=== PATIENT | male | born 1970 | race Hispanic/Latino ===

== ENCOUNTER 2020-05-23 09:30 | Inpatient (IN) | payer SELFPAY ==
--- NOTE | 2020-05-23 11:35 | RAD ---
Chest one view HISTORY: Swelling. Dyspnea. FINDINGS: Cardiac silhouette is magnified by projection. Pulmonary vasculature are unremarkable. Mediastinum is midline. Ill-defined hazy peripheral opacity projects over the lateral aspect of the r ight upper lobe. No evidence of pneumothorax. IMPRESSION : Right upper lobe opacity. Possible infiltrate. Correlate for right upper lobe pneumonitis. Please consider upright PA and views of the chest when patient can undergo that exam.
[2020-05-23 12:11] LABS: INR-International Normal Ratio 1.8; PTT 37.2 sec (22.9-36.1); Prothrombin Time 21.1 sec (12.0-14.7)
[2020-05-23 12:19] LABS: #Eosinphils 0.1 thou/uL (0.0-0.7); #Lymphocytes 0.8 thou/uL (1.20-3.40); #Monocytes 0.8 thou/uL (0.11-0.59); %Basophils 0.4 % (0.0-1.0); %Eosinophils 1.1 % (0.0-10.0); %Lymphocytes 11.6 % (21.0-51.0); %Monocytes 11.9 % (0.0-10.0); %Neutrophils 75.1 % (42.0-75.0); Hemoglobin 12.3 g/dL (14.0-18.0); Mean Corpuscular HGB CONC 33.3 g/dL (32.0-36.0); Mean Corpuscular Hemoglobin 35.3 pg (27.0-31.0); Mean Platelet Volume 10.3 fL (7.4-10.4); Platelet Count 58 thou/uL (130-400); RBC Distribution Width 16.2 % (11.5-14.5); Red Blood Cell (RBC) Count 3.48 mill/uL (4.70-6.10); White Blood Cell (WBC) Count 6.7 thou/uL (4.8-10.8)
[2020-05-23 12:24] LABS: ALT (SGPT) 46 U/L (8-55); AST (SGOT) 120 U/L (5-34); Albumin 2.5 g/dL (3.5-5.0); Alkaline Phosphatase 241 U/L (40-110); Anion Gap 12 mmol/L (10-20); BUN (Urea Nitrogen) 6 mg/dL (8.9-20.6); Bilirubin, Total 12.8 mg/dL (0.2-1.2); Calc. Creatinine Clearance 0 mL/min (70-130); Calcium 7.7 mg/dL (7.8-10.44); Carbon Dioxide 21 mmol/L (22-29); Chloride 101 mmol/L (98-107); Globulin 4.9 g/dL (2.4-3.5); Glucose 123 mg/dL (70-105); Potassium 3.5 mmol/L (3.5-5.1); Protein, Total 7.4 g/dL (6.0-8.3); Sodium 130 mmol/L (136-145)
[2020-05-23 12:45] LABS: Hypersemented Neutrophil SLIGHT; MDiff Complete? YES; Platelet Morphology Comment Appears Decreased; Polychromasia SLIGHT = 2-3 cells (100X) (0-2/hpf)
[2020-05-23] MEDS ORDERED: cefTRIAXone\\ROCEPHIN 2 GM VIAL ONE (13:57)
[2020-05-23] MEDS ORDERED: Sodium Chloride 0.9% 100 ML ONE (13:57)
[2020-05-23] MEDS ORDERED: Azithromycin 500 MG VIAL ONE (14:34)
[2020-05-23 16:39] VITALS: BMI 38.7
[2020-05-23] MEDS ORDERED: Electrolyte Replacement Protocol FS PRN (17:45)
[2020-05-23] MEDS ORDERED: Electrolyte Replacement Protocol 1 EACH FS SCH (17:45)
--- NOTE | 2020-05-23 19:12 | HP ---
REASON FOR ADMISSION: Increased bilateral lower extremity swelling. 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 A month ago, he started experiencing swelling of his lower extremities initially around his ankles, but as the days progressed, the swelling increased and was involving both of his legs, his scrotum, and his abdomen that he was having difficulty taking a deep breath. He does endorse a hacking cough productive of some phlegm, but no fevers, no chills. He presented to his primary care physician today, Dr. Shrestha, who noted that the patient had gained approximately 40 pounds over the past couple of weeks. She advised him to present to the emergency room for further management. The patient is currently on Med/Surg. He appears to be comfortable, in no acute distress. He is very pleasant. PAST MEDICAL HISTORY: 1. Anxiety. 2. Liver cirrhosis. SOCIAL HISTORY: He quit drinking alcohol 10 years ago. He quit smoking 20 years ago. FAMILY HISTORY: Father has diabetes as well as his mother. ALLERGIES: NO NOTE OF ANY DRUG ALLERGY. REVIEW OF SYSTEMS: All systems reviewed except for the above mentioned swelling of bilateral lower extremity, found to be negative. PHYSICAL EXAMINATION: GENERAL: He is awake, alert, oriented, does not appear in distress. VITAL SIGNS: His blood pressure is 125/60, heart rate of 90, temperature is 98.1, saturating 98% on room air. HEENT: Head is nontraumatic, normocephalic. Icteric sclerae. Injected conjunctivae. Oral mucosa normal. Nasal mucosa normal. NECK: Supple. No adenopathy. No murmur. Thyroid is not palpable. Trachea is midline. HEART: S1, S2, regular. Faint systolic murmur heard. LUNGS: Clear to auscultation bilaterally. No wheezes, no rhonchi, no crackles. ABDOMEN: Bowel sounds are positive. Abdomen is distended with shifting dullness. EXTREMITIES: He does have 3+ pitting edema in bilateral lower extremities extending to his inguinal area. NEURO: Cranial nerves 2 through 12 within normal limits. Normal motor function. Normal sensory function, reflexes. LABORATORY DATA: Blood work shows a WBC of 6.7, hemoglobin of 12.3, platelets of 58. INR 1.8. Sodium 130, potassium 3.5, bicarb of 21, BUN of 6, creatinine 0.69, glucose 123, calcium 7.7, AST 120, ALT 46, alkaline phosphatase of 241. BNP 143.7, albumin 2.5. A chest x-ray shows right upper lobe opacity, possible infiltrate, correlate for right upper lobe pneumonitis. ASSESSMENT AND PLAN: This is a 49-year-old male patient, who is known to have liver cirrhosis and recently developing anasarca/ascites, presenting for worsening of his anasarca. Chest x-ray did show possible upper lobe pneumonitis. Recommendation is to do a PA and lateral x-ray. The patient will be admitted to Med-Surg and I will start him on IV Lasix. He did receive his initial dose in the ER, we will consult Gastroenterology for further recommendation. Also, we will consult Interventional Radiology for an ultrasound-guided paracentesis, he is usually on lactulose, so we will have him on lactulose once a day. We will check his ammonia level as well. For the possible pneumonitis, he did receive Rocephin and azithromycin in the ER. I will maintain him on azithromycin. I have a weak suspicion for pneumonia. On the other hand, would like to do a dedicated PA and lateral x-ray tomorrow for further investigation. For DVT prophylaxis, he will be on SCDs. Job ID: [id number]
[2020-05-23] MEDS: Furosemide 40 MG/4 ML VIAL SLOW IVP SCH (20:40)
[2020-05-23] MEDS ORDERED: Furosemide 20 MG/2 ML VIAL SLOW IVP SCH (21:00)
[2020-05-23] MEDS ORDERED: Ibuprofen 600 MG TAB PO SCH (21:45)
[2020-05-23 22:02] LABS: SARS-CoV-2 MS2 Positive; SARS-CoV-2 N Gene Negative; SARS-CoV-2 S Gene Negative; SARS-CoV-2 by NAA Not Detected (NotDetected); SARS-CoV-2 orf1ab Negative
[2020-05-24 04:45] LABS: #Eosinphils 0.1 thou/uL (0.0-0.7); #Lymphocytes 0.9 thou/uL (1.20-3.40); #Monocytes 0.6 thou/uL (0.11-0.59); #Neutrophils 2.9 thou/uL (1.40-6.50); %Basophils 0.8 % (0.0-1.0); %Eosinophils 1.5 % (0.0-10.0); %Lymphocytes 19.9 % (21.0-51.0); %Monocytes 14.1 % (0.0-10.0); %Neutrophils 63.7 % (42.0-75.0); Hemoglobin 10.7 g/dL (14.0-18.0); Mean Corpuscular HGB CONC 32.4 g/dL (32.0-36.0); Mean Corpuscular Hemoglobin 34.6 pg (27.0-31.0); Mean Platelet Volume 9.9 fL (7.4-10.4); Platelet Count 53 thou/uL (130-400); RBC Distribution Width 16.3 % (11.5-14.5); White Blood Cell (WBC) Count 4.5 thou/uL (4.8-10.8)
[2020-05-24 04:58] LABS: ALT (SGPT) 37 U/L (8-55); AST (SGOT) 91 U/L (5-34); Alkaline Phosphatase 184 U/L (40-110); Anion Gap 10 mmol/L (10-20); BUN (Urea Nitrogen) 8 mg/dL (8.9-20.6); Bilirubin, Total 10.6 mg/dL (0.2-1.2); Calc. Creatinine Clearance 217 mL/min (70-130); Calcium 7.2 mg/dL (7.8-10.44); Carbon Dioxide 24 mmol/L (22-29); Chloride 103 mmol/L (98-107); Glucose 91 mg/dL (70-105); Potassium 3.4 mmol/L (3.5-5.1); Sodium 134 mmol/L (136-145)
[2020-05-24] MEDS ORDERED: Potassium Chloride 20 MEQ TAB PO SCH (06:30)
--- NOTE | 2020-05-24 09:25 | ULT ---
Sonogram abdomen limited HISTORY: Ascites. FINDINGS: Exam was originally scheduled as a therapeutic paracentesis. Sonographic survey shows a SMALL AMOUNT of FREE FLUID. Of insufficient quantity for appropriate and e ffective drainage. Therapeutic paracentesis therefore was not performed.
[2020-05-24] MEDS: Furosemide 40 MG/4 ML VIAL SLOW IVP SCH ×2 (10:02→19:34)
--- NOTE | 2020-05-24 10:30 | RAD ---
TWO VIEWS CHEST: HISTORY: Abnormal chest x-ray. FINDINGS: Again noted is the parenchymal opacity seen within the posterior aspect of the right upper lobe. The re is also parenchymal opacity seen within the medial aspect of the left upper lobe. Findings are wo rrisome for multifocal areas of pneumonia. Followup to complete resolution is recommended to ensure resolution. No definite pleural effusion is appreciated. No other interval change compared to prior study. IMPRESSION: Right upper lobe and left lower lobe parenchymal airspace opacities worrisome for multifocal pneumoni a. Atypical pneumonia is a possibility. Followup to complete resolution is recommended. POS: [facility]
--- NOTE | 2020-05-24 12:34 | CON ---
DATE OF CONSULTATION: 05/24/2020 REQUESTING PHYSICIAN: Lance Zapata MD REASON FOR CONSULTATION: Cirrhosis and anasarca. HISTORY OF PRESENT ILLNESS: Prabhakar Shankar is a very pleasant 49-year-old man, who has not established care with any [facility] project manager so far. He was admitted to the hospital yesterday with worsening progressive lower extremity edema, then scrotal edema and some abdominal distention over the past month or so. He has gained about 40 pounds over this past period of time due to the fluid retention. He reports a prior diagnosis of cirrhosis back around 2013 while he was in intermediate. He recalls having undergone some workup and being told that it was secondary to alcohol. He quit drinking all alcohol at that time and had done very well symptomatically since then. About four months ago, for whatever reason, he started drinking again. He says he has about a six pack of beer every day. Back in March, I note that he saw his primary physician and labs at that time showed total bilirubin elevation to 6.7, ammonia over 500 and he was referred for outpatient hepatology evaluation, which he had not yet followed up for. Regardless, his only real symptoms are the significant lower extremity scrotal and lower abdominal edema. He has some minor cough, but no fever. No shortness of breath. Upon presentation, he is now found to have some further elevation in LFTs with bilirubin up to 10.6, AST 91, and ALT 37. He has some thrombocytopenia with platelets 53, as well as coagulopathy with INR 1.8. His renal function appears good with creatinine only 0.64. He was sent for ultrasound-guided paracentesis, but actually on that ultrasound, there was not enough fluid to perform paracentesis and so it was canceled. He has not had any other dedicated liver imaging and his chest x-ray suggest a multifocal pneumonitis and so he has been started on azithromycin. Notably, he was started on Lasix 20 mg daily as well as lactulose within the past few months, but he has not been on any low-sodium diet. He has not undergone any upper endoscopy that he can recall. REVIEW OF SYSTEMS: Full review of systems including constitutional, head, eyes, ears, nose, throat, GI, , cardiovascular, respiratory, musculoskeletal, and neurologic systems are negative except as noted in the HPI. PAST MEDICAL HISTORY: 1. Cirrhosis, evidently secondary to alcohol, diagnosed around 2013. 2. Anxiety. 3. Chronic alcohol abuse, recently started drinking again in the past 4 months or so. SOCIAL HISTORY: He says he quit drinking alcohol back around 2013, but started drinking again about four months ago. A six pack of beer per day. He quit smoking about 20 years ago. No recent drug use, did have some greater than 30 years ago. FAMILY HISTORY: No known family history of liver disease. There is a family history of diabetes and kidney disease. ALLERGIES: NO KNOWN DRUG ALLERGIES. OUTPATIENT MEDICATIONS: 1. Lactulose 30 g p.o. daily. 2. Lasix 20 mg p.o. daily. 3. Zoloft 100 mg p.o. daily. PHYSICAL EXAMINATION: VITAL SIGNS: Temperature 98.7, pulse 81, blood pressure 115/65, and 97% oxygen saturation on room air. GENERAL: A 49-year-old man, sitting up in chair comfortably, in no distress. He is jaundiced. EYES: He has some scleral icterus. Extraocular movements intact. ENT: Mucous membranes moist. No oral lesions. LYMPH: No submandibular or supraclavicular lymphadenopathy. THYROID: Nontender to palpation. HEART: Regular rate and rhythm. LUNGS: Clear to auscultation bilaterally. No wheezing. No respiratory distress appreciated. ABDOMEN: He is obese. There is some mild to moderate distention, primarily in the lower abdomen. There is a lot of subcutaneous edema in the lower abdomen. No shifting dullness, though. He has active bowel sounds and some mild generalized tenderness to palpation, but no guarding or rebound tenderness. EXTREMITIES: 2 to 3+ bilateral lower extremity edema going all the way up the thighs. NEUROLOGIC: Cranial nerves 2 through 12 intact bilaterally. No asterixis. No focal deficits. LABORATORY STUDIES: WBC 4.5, hemoglobin 10.7, platelets 53, and MCV is 107.0. INR elevated at 1.8. Sodium 134, potassium 3.4, BUN 8, creatinine 0.64, glucose only 91, calcium 7.2, total bilirubin 10.6, alkaline phosphatase 184, AST 91, ALT 37, and ammonia only 49. BNP is 143.7. Troponin negative. Albumin 2.0. COVID PCR is negative. IMAGING STUDIES: Chest x-ray demonstrates right upper lobe and left lower lobe parenchymal opacities concerning for multifocal pneumonia. Limited abdominal ultrasound from this morning showed only a small amount of free fluid, insufficient quantity for paracentesis, so it was not performed. ASSESSMENT AND PLAN: 1. Cirrhosis, likely secondary to alcohol, now with recent decompensation. 2. Anasarca, with significant recent fluid retention and weight gain over the past month, though evidently no significant ascites as yet. 3. Multifocal pneumonia, he has been started on azithromycin. 4. Thrombocytopenia, likely secondary to cirrhosis. 5. Coagulopathy, with INR 1.8, likely secondary to cirrhosis. 6. History of hyperammonemia, with recent ammonia greater than 500, with no history of overt encephalopathy, now with normal ammonia level on lactulose. I had a long discussion with the patient regarding his liver disease. This likely is secondary to alcohol abuse, and is now more recent decompensation with anasarca is likely secondary to his resumption of alcohol use. It is going to be very important that he completely abstain from all alcohol going forward, and he is pretty confident that he will be able to do this. We are going to expand the liver lab workup with viral hepatitis serologies, autoimmune markers, iron studies, ceruloplasmin, and alpha-1 antitrypsin, to rule out any other concomitant liver disease, though I suspect this is all due to alcohol abuse. He needs better liver imaging to rule out not only hepatocellular carcinoma, but also possibly portal vein thrombosis, which might have contributed to his current presentation. We will get MRI as well as AFP level. He is now receiving IV diuresis, which is appropriate. On hospital discharge, he is going to need to be on an increased dose of Lasix and I would also add oral spironolactone at a ratio of 20 to 50 daily. I also discussed the importance of a low-sodium diet with the patient. Upon followup in our GI/hepatology clinic, we can also discuss at some point, schedule him for esophagogastroduodenoscopy to screen for esophageal varices. If the patient has evidence of worsening liver function over the next few weeks and months despite abstinence from alcohol, we could also consider referral to a liver transplant center for their evaluation. Currently, MELD score is 24. Thank you for the consultation. Please call anytime with questions or concerns. Job ID: [id number]
[2020-05-24] MEDS ORDERED: Magnevist 469MG/ML 20 ML VIAL ONE (13:37)
--- NOTE | 2020-05-24 15:26 | PDOC.HOSPP ---
- Subjective Encounter Date: 05/24/20 Encounter Time: 12:00 Subjective: no abd pain or sob is sitting in chair, eating well and amb in room says he started drinking alc from last 4 months (almost 12 beers daily) - Objective Vital Signs & Weight: Vital Signs (12 hours) Temp Pulse Resp BP BP Pulse Ox 05/24/20 08:00 98.7 F 81 18 115/65 97 05/24/20 04:00 98.0 F 85 16 114/60 97 Weight Weight 240 lb I&O: 05/23/20 05/24/20 05/25/20 06:59 06:59 06:59 Intake Total 1510 720 Output Total 1450 Balance 60 720 Result Diagrams: 05/24/20 04:18 05/24/20 04:18 Hospitalist ROS - Medication Medications: Active Medications Generic Name Dose Route Start Last Admin Trade Name Freq PRN Reason Stop Dose Admin Furosemide 40 mg 05/23/20 21:00 05/24/20 10:02 Furosemide 40 Mg/4 Ml Vial SLOW IVP 40 mg BID BECKY Administration Lactulose 20 gm 05/24/20 09:00 05/24/20 10:02 Lactulose 20 Gm/30 Ml Udcup PO Not Given DAILY BECKY - Exam General Appearance: NAD Eye: scleral icterus ENT: no oropharyngeal lesions, moist mucosa Neck: supple, no JVD Heart: RRR, no murmur Respiratory: no wheezes, no rales Gastrointestinal: soft, non-tender, normal bowel sounds, distended Gastrointestinal - other findings: abd wall edema++ Extremities: no cyanosis, 2+ LE edema Neurological: cranial nerve grossly intact, no focal deficits Psychiatric: normal affect, A&O x 3 Hosp A/P (1) PNA (pneumonia) Code(s): J18.9 - PNEUMONIA, UNSPECIFIED ORGANISM Status: Acute Qualifiers: Pneumonia type: due to unspecified organism Laterality: bilateral (2) Hypoalbuminemia Code(s): E88.09 - OTH DISORDERS OF PLASMA-PROTEIN METABOLISM, NEC Status: Acute (3) Anasarca Code(s): R60.1 - GENERALIZED EDEMA Status: Acute (4) Alcohol abuse Code(s): F10.10 - ALCOHOL ABUSE, UNCOMPLICATED Status: Chronic (5) Cirrhosis of liver Code(s): K74.60 - UNSPECIFIED CIRRHOSIS OF LIVER Status: Chronic Qualifiers: Hepatic cirrhosis type: alcoholic cirrhosis (6) Anxiety disorder Code(s): F41.9 - ANXIETY DISORDER, UNSPECIFIED Status: Chronic Qualifiers: Anxiety disorder type: generalized anxiety disorder Qualified Code(s): F41.1 - Generalized anxiety disorder - Plan is on zithromax, lasix, lactulose daily usg did not reveal ascites has extensive edema with low albumin mri abd is being done to r/o mass, portal vein thrombosis t.bili is 10, inr is 1.8, platelets are 53, alb is 2 hemostable watch for renal function/electrolytes with diuresis is his PCP amalia colon LE
--- NOTE | 2020-05-24 15:50 | MRI ---
MRI ABDOMEN WITH AND WITHOUT IV CONTRAST: 05/24/20 HISTORY: Cirrhosis of the liver, abdominal distention. COMPARISON: None. FINDINGS: Exam is limited due to motion artifact. A moderate sized left pleural effusion is seen. there is free fluid in the abdomen consistent with as cites. The liver demonstrates irregular surface without focal enhancing mass or abnormal biliary duct al dilatation. There is a probable tiny cyst in the posterior segment of the right lobe of the liver. No gallstones are seen. The spleen is enlarged measuring 19.7 cm in length. the pancreas, adrenal gla nds and left kidney are normal. There is an 8 mm cortical cyst in the right kidney. No definite nimo l or splenic vein thrombosis is seen. the aorta is of normal caliber. The bone marrow signal is ingrid l. There is recanalization of the paraumbilical vein. There is a tiny cyst in the posterior segment o f the right lobe of the liver. IMPRESSION: 1. Cirrhosis of the liver without evidence of hepatic mass to suggest HCC. LI-RADS 1. 2. Splenomegaly. 3. Ascites. 4. Moderate left pleural effusion. POS: [facility]
[2020-05-24] MEDS: Azithromycin 200 MG/5 ML Oral Suspension PO SCH (17:06)
[2020-05-24] MEDS ORDERED: Morphine 2 MG/ML VIAL SLOW IVP SCH (19:30)
[2020-05-25 05:21] LABS: ALT (SGPT) 40 U/L (8-55); AST (SGOT) 90 U/L (5-34); Alkaline Phosphatase 225 U/L (40-110); Anion Gap 10 mmol/L (10-20); BUN (Urea Nitrogen) 9 mg/dL (8.9-20.6); Bilirubin, Total 10.6 mg/dL (0.2-1.2); Calc. Creatinine Clearance 211 mL/min (70-130); Calcium 7.3 mg/dL (7.8-10.44); Carbon Dioxide 26 mmol/L (22-29); Chloride 101 mmol/L (98-107); Glucose 90 mg/dL (70-105); Iron 121 ug/dL (65-175); Iron Binding Capacity, Total 114 mcg/dL (261-462); Potassium 3.9 mmol/L (3.5-5.1); Sodium 133 mmol/L (136-145)
[2020-05-25 05:39] LABS: Ferritin 653.54 ng/mL (22-322)
[2020-05-25 05:54] LABS: HBCM Index 0.07 S/CO (0-0.79); HBSAg Index 0.32 S/CO (0-0.99); Hep A IgM AB Non-Reactive (NonReactive); Hep A IgM S/CO 0.42 S/CO (0-0.79); Hep B Surf Ag Non-Reactive S/CO (NonReactive); Hep C IgG Ab Non-Reactive (NonReactive); Hep C Index 0.62 S/CO (0-0.79); Hepatitis B Core IgM Abs Non-Reactive (NonReactive)
[2020-05-25] MEDS: Potassium Chloride 20 MEQ TAB PO SCH (09:44)
[2020-05-25] MEDS: Furosemide 40 MG/4 ML VIAL SLOW IVP SCH ×2 (09:44→20:24)
--- NOTE | 2020-05-25 09:49 | PRG ---
DATE OF SERVICE: 05/25/2020 SUBJECTIVE: Mr. Shankar is feeling about the same. Overall doing well. Still with significant swelling in the lower extremities and lower abdominal wall. OBJECTIVE: VITAL SIGNS: Temperature 98.6, pulse 84, blood pressure 109/68, and 96% oxygen saturation on room air. GENERAL: In no acute distress, sitting up in chair comfortably. HEART: Regular rate and rhythm. LUNGS: Clear to auscultation bilaterally. ABDOMEN: Ifrs-sw-[id number] distention. Bowel sounds present. Nontender to palpation. EXTREMITIES: 2 to 3+ bilateral lower extremity edema. LABORATORY STUDIES: Sodium 133, potassium 3.9, BUN 9, creatinine 0.66, glucose 90. Ferritin was 653.54, iron 121, TIBC 114. Total bilirubin stable at 10.6, alkaline phosphatase 225, AST 90, ALT 40, albumin 2.0. AFP was normal at 3.1. Total IgG 1753. Viral hepatitis serologies are negative for hepatitis A, hepatitis B surface antigen, and hepatitis C antibody. Labs pending include alpha-1 antitrypsin phenotype, ceruloplasmin, AXEL, AMA, and ASMA. IMAGING STUDIES: Abdominal MRI from yesterday showed no evidence of hepatic mass, there is surface irregularity, but no biliary dilation, all consistent with cirrhosis. There is ascites. There is splenomegaly, 19.7 cm. ASSESSMENT AND PLAN: 1. Cirrhosis, appears secondary to alcohol abuse, now with decompensation with fluid retention in the context of resumption of alcohol use. 2. Anasarca, with some mild ascites. 3. Multifocal pneumonia, he has been treated with azithromycin. 4. Thrombocytopenia, secondary to cirrhosis. 5. Coagulopathy, with INR 1.8, likely secondary to cirrhosis. 6. History of hyperammonemia, with recent ammonia greater than 500, no history of overt encephalopathy, now with normal ammonia level, on lactulose. Still awaiting autoimmune markers, ceruloplasmin, and alpha-1 antitrypsin, but I note viral hepatitis serologies are negative, total IgG is normal, ferritin only elevated to 650, so this all does remain consistent with alcoholic liver disease. I again stressed with him the importance of avoiding all alcohol going forward, also sticking with a low-sodium diet. He has been receiving IV Lasix here. We would recommend discharge on both Lasix and spironolactone at a ratio of 20:50, so perhaps Lasix 40 mg daily and spironolactone 100 mg daily. His renal function is stable. There is no evidence of HCC or portal vein thrombus based on MRI. We are going to plan to follow up in the GI/Liver Clinic in the next 3 weeks or so. At some point, we will schedule him for EGD to screen for esophageal varices. If the patient has evidence of worsening liver function over the next few weeks and months despite abstinence from alcohol, we could also consider referral to a Liver Transplant Center for their evaluation. Currently, MELD score is 24. GI will sign off. Please call back anytime with questions or concerns. Job ID: [id number]
--- NOTE | 2020-05-25 13:45 | PDOC.HOSPP ---
- Subjective Encounter Date: 05/25/20 Encounter Time: 13:00 Subjective: feels better, is amb in room no sob - Objective Vital Signs & Weight: Vital Signs (12 hours) Temp Pulse Resp BP Pulse Ox 05/25/20 08:00 98.6 F 84 18 109/68 96 Weight Weight 240 lb I&O: 05/24/20 05/25/20 05/26/20 06:59 06:59 06:59 Intake Total 1510 1960 Output Total 1450 1450 Balance 60 510 Result Diagrams: 05/24/20 04:18 05/25/20 04:45 Hospitalist ROS - Medication Medications: Active Medications Generic Name Dose Route Start Last Admin Trade Name Freq PRN Reason Stop Dose Admin Azithromycin 500 mg 05/24/20 15:00 05/24/20 17:06 Azithromycin 200 Mg/5 Ml Oral Suspension PO 500 mg 1500 BECKY Administration Furosemide 40 mg 05/23/20 21:00 05/25/20 09:44 Furosemide 40 Mg/4 Ml Vial SLOW IVP 40 mg BID BECKY Administration Lactulose 20 gm 05/24/20 09:00 05/25/20 09:44 Lactulose 20 Gm/30 Ml Udcup PO 20 gm DAILY BECKY Administration Potassium Chloride 40 meq 05/25/20 08:00 05/25/20 09:44 Potassium Chloride 20 Meq Tab PO 40 meq QAM-WM BECKY Administration - Exam General Appearance: awake alert Eye: PERRL, anicteric sclera ENT: no oropharyngeal lesions, moist mucosa Neck: supple, no JVD Heart: RRR, no murmur Respiratory: no wheezes, no rales Gastrointestinal: soft, non-tender, normal bowel sounds Gastrointestinal - other findings: lower abd wall edema+ Extremities: no cyanosis, 2+ LE edema Neurological: cranial nerve grossly intact, no focal deficits Psychiatric: normal affect, A&O x 3 Hosp A/P (1) PNA (pneumonia) Code(s): J18.9 - PNEUMONIA, UNSPECIFIED ORGANISM Status: Acute Qualifiers: Pneumonia type: due to unspecified organism Laterality: bilateral (2) Hypoalbuminemia Code(s): E88.09 - OTH DISORDERS OF PLASMA-PROTEIN METABOLISM, NEC Status: Acute (3) Anasarca Code(s): R60.1 - GENERALIZED EDEMA Status: Acute (4) Alcohol abuse Code(s): F10.10 - ALCOHOL ABUSE, UNCOMPLICATED Status: Chronic (5) Cirrhosis of liver Code(s): K74.60 - UNSPECIFIED CIRRHOSIS OF LIVER Status: Chronic Qualifiers: Hepatic cirrhosis type: alcoholic cirrhosis (6) Anxiety disorder Code(s): F41.9 - ANXIETY DISORDER, UNSPECIFIED Status: Chronic Qualifiers: Anxiety disorder type: generalized anxiety disorder Qualified Code(s): F41.1 - Generalized anxiety disorder - Plan is on zithromax, lasix, lactulose daily MRI abd results notes, no mass or portal vein thrombosis, afp is normal has extensive edema with low albumin t.bili is 10, inr is 1.8, platelets are 53, alb is 2 hemostable watch for renal function/electrolytes with diuresis is his PCP amalia GUNTER dc plan in am on oral lasix and spironolactone
[2020-05-25 16:27] LABS: ANA Symphony (Qualitative) Negative (Negative); ANA Symphony (Quantitative) 0.6 Ratio (< 0.7 Negative); EliA Vaculitis New Method **** NEW METHOD ****; Mitochondrial Ab 1.9 U/mL (<4 Negative)
[2020-05-25] MEDS: Azithromycin 200 MG/5 ML Oral Suspension PO SCH (20:23)
[2020-05-25] MEDS: Morphine 2 MG/ML VIAL SLOW IVP PRN (20:24)
[2020-05-25] MEDS ORDERED: diphenhydrAMINE 25 MG CAP PO SCH (21:00)
[2020-05-26] MEDS: Morphine 2 MG/ML VIAL SLOW IVP PRN (02:47)
[2020-05-26 06:59] LABS: ALT (SGPT) 40 U/L (8-55); AST (SGOT) 103 U/L (5-34); Albumin 2.1 g/dL (3.5-5.0); Alkaline Phosphatase 218 U/L (40-110); Anion Gap 10 mmol/L (10-20); BUN (Urea Nitrogen) 9 mg/dL (8.9-20.6); Bilirubin, Total 10.5 mg/dL (0.2-1.2); Calc. Creatinine Clearance 217 mL/min (70-130); Calcium 7.4 mg/dL (7.8-10.44); Carbon Dioxide 25 mmol/L (22-29); Chloride 101 mmol/L (98-107); Globulin 4.4 g/dL (2.4-3.5); Glucose 81 mg/dL (70-105); Potassium 3.3 mmol/L (3.5-5.1); Protein, Total 6.5 g/dL (6.0-8.3); Sodium 133 mmol/L (136-145)
[2020-05-26] MEDS ORDERED: Potassium Chloride 20 MEQ TAB PO SCH (07:30)
[2020-05-26 09:00] VITALS: BP 107/61; TEMP 99.1
[2020-05-26] MEDS: Potassium Chloride 20 MEQ TAB PO SCH (10:12)
[2020-05-26] MEDS: Furosemide 40 MG/4 ML VIAL SLOW IVP SCH (10:13)
--- NOTE | 2020-05-26 15:45 | DIS ---
DATE OF ADMISSION: 05/23/2020 DATE OF DISCHARGE: 05/26/2020 DISCHARGE DISPOSITION: To home. PRIMARY DISCHARGE DIAGNOSES: Anasarca with low albumin from cirrhosis, multifocal pneumonia, hypoalbuminemia due to cirrhosis, alcohol abuse with cirrhosis, anxiety disorder. PROCEDURES DONE DURING HOSPITALIZATION: Chest x-ray done on the day of admission showed multifocal pneumonia. Ultrasound of abdomen done for therapeutic paracentesis, which was not performed due to small amount of free fluid. MRI abdomen with and without IV contrast done showed cirrhosis of liver without evidence of hepatic mass to suggest HCC, splenomegaly, ascites, moderate left pleural effusion. No definite portal or splenic vein thrombosis was seen. H and H 10 and 33, platelet count 53, MCV 107, white count of 4.5. INR 1.8, PTT 37. Total bilirubin 10, AST 103, ALT 40, alkaline phosphatase 218, ferritin 653. BUN 9, creatinine 0.6, sodium 133, albumin is 2.1, ceruloplasmin 26, tumor marker AFP 3.1, ammonia 49. IgG total was 1753. AXEL screen was negative. Anti-mitochondrial antibody levels were 1.9. COVID-19 PCR was not detected on 05/23/2020. Acute hepatitis panel was nonreactive. DISCHARGE MEDICATIONS: 1. Lasix 20 mg daily. 2. Spironolactone 50 mg twice daily. 3. Omnicef 300 mg p.o. twice daily for another 4 days. 4. Zoloft 100 mg p.o. daily. 5. Lactulose 30 g p.o. daily. ALLERGIES: NO KNOWN DRUG ALLERGIES. DISCHARGE PLAN: The patient to follow up with his primary care physician, Ifeoma Shrestha in 1 week. He needs to follow up with Dr. Krish March in 2 to 3 weeks. BRIEF COURSE DURING HOSPITALIZATION: The patient initially got admitted on the with complaints of worsening lower extremity edema and abdominal distention. The patient had history of alcoholic cirrhosis. He had resumed drinking from last 4 months almost 12 beers a day. His albumin levels were 2. The patient had lower abdominal wall edema along with lower extremity severe pitting edema. He was gently diuresed during his stay here. The patient had a total bilirubin of 10. Had a MELD score of around 24. He has had consultation with Dr. Krish March for Gastroenterology. MRI abdomen with and without contrast done showed no mass in the liver or portal vein thrombosis. Attempted paracentesis was not successful as there was very minimal fluid. He was strongly counseled against any amount of drinking alcohol. The patient needs to follow up with Dr. Krsih March in 2 to 3 weeks for followup and likely referral for liver transplant if he remains abstinent from alcohol. Please note, I have seen and examined the patient on the day of discharge. Job ID: [id number]
[2020-05-28 15:15] LABS: Alpha-1-Antitrypsin 168 mg/dL (101-187)
== END 2020-05-26 15:00 | disposition home or self-care (01) | DRG 432 ==
LOC: ERS 09:30 → ONC 13:06
PROVIDERS: ADMIT Internal Medicine; ATTEND Internal Medicine
DX: K70.31 Alcoholic cirrhosis of liver with ascites (principal); J18.9 Pneumonia, unspecified organism; F10.180 Alcohol abuse with alcohol-induced anxiety disorder; D68.4 Acquired coagulation factor deficiency; Z20.822 Contact with and (suspected) exposure to COVID-19; D69.59 Other secondary thrombocytopenia; F41.1 Generalized anxiety disorder; E88.09 Other disorders of plasma-protein metabolism, not elsewhere classified; Z87.891 Personal history of nicotine dependence; Z79.899 Other long term (current) drug therapy
CPT/HCPCS: 36415; 71045; 71046; 74183; 76705; 80053; 80074; 82103; 82104; 82105; 82140; 82390; 82728; 83516; 83540; 83550; 83880; 84484; 85025; 85060; 85610; 85730; 86038; 86225; 86850; 86900; 86901; 87635; 93005; 96365; 96375; A9579; J0456; J0696; J1940; J2270; J3490; Q0163; U0003

== ENCOUNTER 2020-09-02 11:10 | Inpatient (IN) | payer SELFPAY ==
[2020-09-02 12:26] LABS: #Eosinphils 0.1 thou/uL (0.0-0.7); #Lymphocytes 0.7 thou/uL (1.20-3.40); #Monocytes 1.1 thou/uL (0.11-0.59); #Neutrophils 7.3 thou/uL (1.40-6.50); %Basophils 0.4 % (0.0-1.0); %Eosinophils 0.7 % (0.0-10.0); %Lymphocytes 7.3 % (21.0-51.0); %Monocytes 12.3 % (0.0-10.0); %Neutrophils 79.2 % (42.0-75.0); Hemoglobin 9.6 g/dL (14.0-18.0); Mean Corpuscular HGB CONC 33.9 g/dL (32.0-36.0); Mean Corpuscular Hemoglobin 38.5 pg (27.0-31.0); Mean Platelet Volume 8.5 fL (7.4-10.4); Platelet Count 67 thou/uL (130-400); RBC Distribution Width 17.5 % (11.5-14.5); White Blood Cell (WBC) Count 9.2 thou/uL (4.8-10.8)
[2020-09-02 12:37] LABS: ALT (SGPT) 38 U/L (8-55); AST (SGOT) 92 U/L (5-34); Albumin 1.8 g/dL (3.5-5.0); Alkaline Phosphatase 260 U/L (40-110); Anion Gap 9 mmol/L (10-20); BUN (Urea Nitrogen) 20 mg/dL (8.9-20.6); Bilirubin, Total 14.6 mg/dL (0.2-1.2); CK (CPK) 74 U/L (30-200); Calc. Creatinine Clearance 0 mL/min (70-130); Calcium 7.8 mg/dL (7.8-10.44); Carbon Dioxide 19 mmol/L (22-29); Chloride 98 mmol/L (98-107); Globulin 4.7 g/dL (2.4-3.5); Glucose 117 mg/dL (70-105); Potassium 4.7 mmol/L (3.5-5.1); Protein, Total 6.5 g/dL (6.0-8.3); Sodium 121 mmol/L (136-145)
[2020-09-02 12:40] LABS: MDiff Complete? YES; Macrocytosis MODERATE=16-30 cells (100X) (0-5/hpf); Platelet Morphology Comment Appears Decreased; Polychromasia SLIGHT = 2-3 cells (100X) (0-2/hpf)
[2020-09-02] MEDS ORDERED: Furosemide 40 MG/4 ML VIAL ONE (13:29)
[2020-09-02] MEDS ORDERED: Calcium Carbonate 500 MG ChewTAB PO PRN (17:48)
[2020-09-02] MEDS ORDERED: Acetaminophen 325 MG TAB PO PRN (17:48)
[2020-09-02 18:31] LABS: INR-International Normal Ratio 2.3; PTT 42.9 sec (22.9-36.1); Prothrombin Time 25.8 sec (12.0-14.7)
[2020-09-02] MEDS: Spironolactone 25 MG TAB PO SCH (21:11)
[2020-09-02] MEDS: cefTRIAXone\\ROCEPHIN 2 GM in Sodium Chloride 0.9% 100 ML IVPB SCH (21:11)
[2020-09-02] MEDS: Guaifenesin DM 100-10/5 ML UDCUP PO PRN (21:12)
[2020-09-02 23:35] VITALS: BMI 32.4
[2020-09-03] MEDS: traMADol HCl 50 MG TAB PO PRN ×2 (02:23→21:13)
[2020-09-03] MEDS: Furosemide 40 MG/4 ML VIAL SLOW IVP SCH ×2 (05:21→14:27)
[2020-09-03 06:56] LABS: Hemoglobin 9.2 g/dL (14.0-18.0); Mean Corpuscular HGB CONC 35.1 g/dL (32.0-36.0); Mean Corpuscular Hemoglobin 39.6 pg (27.0-31.0); Mean Platelet Volume 8.4 fL (7.4-10.4); Platelet Count 62 thou/uL (130-400); RBC Distribution Width 17.1 % (11.5-14.5); Red Blood Cell (RBC) Count 2.33 mill/uL (4.70-6.10); White Blood Cell (WBC) Count 8.4 thou/uL (4.8-10.8)
[2020-09-03 06:59] LABS: SARS-CoV-2 PCR by NAA Not Detected (NotDetected)
[2020-09-03 07:11] LABS: ALT (SGPT) 39 U/L (8-55); AST (SGOT) 90 U/L (5-34); Albumin 1.7 g/dL (3.5-5.0); Alkaline Phosphatase 248 U/L (40-110); Anion Gap 13 mmol/L (10-20); BUN (Urea Nitrogen) 21 mg/dL (8.9-20.6); Bilirubin, Total 15.3 mg/dL (0.2-1.2); Calc. Creatinine Clearance 154 mL/min (70-130); Calcium 7.9 mg/dL (7.8-10.44); Carbon Dioxide 17 mmol/L (22-29); Chloride 96 mmol/L (98-107); Globulin 4.7 g/dL (2.4-3.5); Glucose 126 mg/dL (70-105); Protein, Total 6.4 g/dL (6.0-8.3); Sodium 122 mmol/L (136-145)
[2020-09-03] MEDS: Spironolactone 25 MG TAB PO SCH ×2 (08:13→21:13)
[2020-09-03 08:37] LABS: Anisocytosis SLIGHT = 6-15 cells (100X) (0-5/hpf); Band 5 % (5-11); Eosinophils 1 % (0-10); Lymphocytes 6 % (21-51); MDiff Complete? YES; Macrocytosis SLIGHT = 6-15 cells (100X) (0-5/hpf); Metamyelocyte 1 % (0-0); Monocytes 10 % (0-10); Neutrophil 77 % (42-75); Nucleated RBC 1 % (0); Platelet Morphology Comment Appears Decreased; Poikilocytosis SLIGHT = 6-15 cells (100X) (0-5/hpf)
[2020-09-03] MEDS ORDERED: Enoxaparin Sodium 30 MG/0.3 ML SYRINGE SC SCH (09:00)
[2020-09-03] MEDS ORDERED: Sodium Bicarbonate 2.5 MEQ/5 ML VIAL ONE (11:47)
[2020-09-03] MEDS ORDERED: Lidocaine 1% PF 5 ML VIAL ONE (11:47)
[2020-09-03 13:40] LABS: RBC Count-Automated (BF) 384 /cu.mm; WBC/Nucleated-Auto (BF) 149 uL
[2020-09-03 14:01] LABS: BF Color Yellow; Body Fluid Source Ascites Body Fluid; Clarity Hazy (Clear); Tube # EDTA
[2020-09-03 14:10] LABS: BF Segmented Neutrophils 15 %; Cell Count Non Hematic 57 %; Lymphocytes 27 %
[2020-09-03] MEDS ORDERED: Thiamine 100 MG TAB PO SCH (15:00)
[2020-09-03] MEDS: Azithromycin 500 MG in Sodium Chloride 0.9% 250 ML 250 ML IVPB SCH (15:35)
[2020-09-03] MEDS: cefTRIAXone\\ROCEPHIN 2 GM in Sodium Chloride 0.9% 100 ML IVPB SCH (16:51)
[2020-09-03 18:48] LABS: Legionella Urinary Ag Negative (Negative); Strep pneumo Urine Ag NEGATIVE (NEGATIVE)
[2020-09-03] MEDS: Guaifenesin DM 100-10/5 ML UDCUP PO PRN (21:12)
[2020-09-03] MEDS: Ondansetron PF 4 MG/2 ML Vial IVP PRN (21:16)
[2020-09-04] MEDS: Furosemide 40 MG/4 ML VIAL SLOW IVP SCH ×2 (05:56→14:29)
[2020-09-04 08:59] LABS: #Eosinphils 0.2 thou/uL (0.0-0.7); #Lymphocytes 1.1 thou/uL (1.20-3.40); #Monocytes 0.7 thou/uL (0.11-0.59); #Neutrophils 5.6 thou/uL (1.40-6.50); %Basophils 0.2 % (0.0-1.0); %Eosinophils 2.2 % (0.0-10.0); %Lymphocytes 14.7 % (21.0-51.0); %Monocytes 8.8 % (0.0-10.0); %Neutrophils 74.1 % (42.0-75.0); Hemoglobin 9.1 g/dL (14.0-18.0); Mean Corpuscular HGB CONC 34.3 g/dL (32.0-36.0); Mean Corpuscular Hemoglobin 38.8 pg (27.0-31.0); Platelet Count 53 thou/uL (130-400); RBC Distribution Width 17.2 % (11.5-14.5); Red Blood Cell (RBC) Count 2.33 mill/uL (4.70-6.10); White Blood Cell (WBC) Count 7.5 thou/uL (4.8-10.8)
[2020-09-04] MEDS: Folic Acid 1 MG TAB PO SCH (09:19)
[2020-09-04] MEDS: Spironolactone 25 MG TAB PO SCH (09:19)
[2020-09-04] MEDS: Thiamine 100 MG TAB PO SCH (09:19)
[2020-09-04] MEDS ORDERED: Lidocaine 1% PF 5 ML VIAL ONE (12:10)
[2020-09-04] MEDS ORDERED: Sodium Bicarbonate 2.5 MEQ/5 ML VIAL ONE (12:10)
[2020-09-04] MEDS: Azithromycin 500 MG in Sodium Chloride 0.9% 250 ML 250 ML IVPB SCH (14:30)
[2020-09-04 15:11] LABS: Anion Gap 11 mmol/L (10-20); BUN (Urea Nitrogen) 21 mg/dL (8.9-20.6); Calc. Creatinine Clearance 145 mL/min (70-130); Calcium 7.7 mg/dL (7.8-10.44); Carbon Dioxide 22 mmol/L (22-29); Chloride 94 mmol/L (98-107); Glucose 138 mg/dL (70-105); Potassium 4.1 mmol/L (3.5-5.1); Sodium 123 mmol/L (136-145)
[2020-09-04 15:28] LABS: SARS-CoV-2 IgG Ab Non-Reactive (NonReactive); SARS-CoV-2 IgG Index 0.08 S/CO (< 1.40)
[2020-09-04 15:56] LABS: SARS-CoV-2 PCR by NAA Not Detected (NotDetected)
[2020-09-04] MEDS: cefTRIAXone\\ROCEPHIN 2 GM in Sodium Chloride 0.9% 100 ML IVPB SCH (17:11)
[2020-09-04] MEDS: traMADol HCl 50 MG TAB PO PRN (17:12)
[2020-09-04] MEDS: Spironolactone 100 MG TAB PO SCH (20:55)
[2020-09-05] MEDS: traMADol HCl 50 MG TAB PO PRN ×2 (01:13→08:57)
[2020-09-05] MEDS: Guaifenesin DM 100-10/5 ML UDCUP PO PRN (01:13)
[2020-09-05] MEDS: Ondansetron PF 4 MG/2 ML Vial IVP PRN (01:17)
[2020-09-05] MEDS: Furosemide 40 MG/4 ML VIAL SLOW IVP SCH ×2 (05:27→14:29)
[2020-09-05 08:55] LABS: INR-International Normal Ratio 2.2; Prothrombin Time 25.2 sec (12.0-14.7)
[2020-09-05] MEDS: Albumin 25% 25 GM/100 ML BOT IVPB SCH ×2 (08:55→14:52)
[2020-09-05] MEDS: Folic Acid 1 MG TAB PO SCH (08:57)
[2020-09-05] MEDS: Thiamine 100 MG TAB PO SCH (08:57)
[2020-09-05] MEDS: Spironolactone 100 MG TAB PO SCH (08:57)
[2020-09-05] MEDS ORDERED: Multivitamin W/ Minerals 1 TAB PO SCH (09:00)
[2020-09-05 09:05] LABS: ALT (SGPT) 43 U/L (8-55); AST (SGOT) 97 U/L (5-34); Albumin 1.8 g/dL (3.5-5.0); Alkaline Phosphatase 256 U/L (40-110); Bilirubin, Direct 9.4 mg/dL (0.1-0.3); Bilirubin, Total 14.8 mg/dL (0.2-1.2); Magnesium 2.1 mg/dL (1.6-2.6); Phosphorus 2.9 mg/dL (2.3-4.7); Protein, Total 6.4 g/dL (6.0-8.3)
[2020-09-05 09:10] LABS: Anion Gap 8 mmol/L (10-20); BUN (Urea Nitrogen) 20 mg/dL (8.9-20.6); Calc. Creatinine Clearance 147 mL/min (70-130); Calcium 7.7 mg/dL (7.8-10.44); Carbon Dioxide 26 mmol/L (22-29); Chloride 92 mmol/L (98-107); Glucose 110 mg/dL (70-105); Potassium 4.1 mmol/L (3.5-5.1); Sodium 122 mmol/L (136-145)
[2020-09-05] MEDS: Azithromycin 500 MG in Sodium Chloride 0.9% 250 ML 250 ML IVPB SCH (14:53)
[2020-09-05 15:52] VITALS: BP 95/57; TEMP 97.9
== END 2020-09-05 16:02 | disposition home or self-care (01) | DRG 432 ==
LOC: ERS 11:10 → T4-B 13:25
PROVIDERS: ADMIT Internal Medicine; ATTEND Internal Medicine
PROC: 0W9G3ZX Drainage of Peritoneal Cavity, Percutaneous Approach, Diagnostic (ICD-10-PCS; principal; 2020-09-03)
PROC: 0W9G3ZZ Drainage of Peritoneal Cavity, Percutaneous Approach (ICD-10-PCS; 2020-09-04)
PROC: HZ2ZZZZ Detoxification Services for Substance Abuse Treatment (ICD-10-PCS; 2020-09-04)
DX: K70.31 Alcoholic cirrhosis of liver with ascites (principal); J96.01 Acute respiratory failure with hypoxia; J18.9 Pneumonia, unspecified organism; E87.1 Hypo-osmolality and hyponatremia; J90 Pleural effusion, not elsewhere classified; D68.4 Acquired coagulation factor deficiency; D53.9 Nutritional anemia, unspecified; E88.09 Other disorders of plasma-protein metabolism, not elsewhere classified; F10.10 Alcohol abuse, uncomplicated; F41.1 Generalized anxiety disorder; Z20.822 Contact with and (suspected) exposure to COVID-19
CPT/HCPCS: 36415; 49083; 71045; 71250; 80048; 80053; 80076; 82042; 82550; 83615; 83735; 83880; 84100; 84484; 85025; 85060; 85610; 85730; 86769; 87070; 87205; 87449; 87635; 87899; 89051; 93005; 96374; J0456; J0696; J1940; J2405; J3490; J7050; P9047; U0003; U0005

== ENCOUNTER 2020-10-08 02:47 | Emergency (ER) | payer SELFPAY ==
[2020-10-08] MEDS ORDERED: Morphine 4 MG/ML VIAL ONE (03:21)
[2020-10-08 03:28] LABS: Hemoglobin 10.2 g/dL (14.0-18.0); Mean Corpuscular HGB CONC 35.5 g/dL (32.0-36.0); Mean Corpuscular Hemoglobin 39.5 pg (27.0-31.0); RBC Distribution Width 17.2 % (11.5-14.5); Red Blood Cell (RBC) Count 2.57 mill/uL (4.70-6.10); White Blood Cell (WBC) Count 7.2 thou/uL (4.8-10.8)
[2020-10-08 03:39] LABS: INR-International Normal Ratio 2.7; Prothrombin Time 29.3 sec (12.0-14.7)
[2020-10-08 03:50] LABS: ALT (SGPT) 73 U/L (8-55); AST (SGOT) 175 U/L (5-34); Albumin 2.4 g/dL (3.5-5.0); Alkaline Phosphatase 451 U/L (40-110); Anion Gap 10 mmol/L (10-20); BUN (Urea Nitrogen) 17 mg/dL (8.9-20.6); Bilirubin, Total 17.1 mg/dL (0.2-1.2); Calc. Creatinine Clearance 0 mL/min (70-130); Calcium 8.4 mg/dL (7.8-10.44); Carbon Dioxide 22 mmol/L (22-29); Chloride 95 mmol/L (98-107); Globulin 4.9 g/dL (2.4-3.5); Glucose 108 mg/dL (70-105); Lipase 170 U/L (8-78); Potassium 4.1 mmol/L (3.5-5.1); Protein, Total 7.3 g/dL (6.0-8.3); Sodium 123 mmol/L (136-145)
[2020-10-08 03:55] LABS: Band 9 % (5-11); Eosinophils 3 % (0-10); Lymphocytes 17 % (21-51); MDiff Complete? YES; Macrocytosis SLIGHT = 6-15 cells (100X) (0-5/hpf); Mean Platelet Volume 8.8 fL (7.4-10.4); Monocytes 14 % (0-10); Myelocyte 2 % (0-0); Neutrophil 55 % (42-75); Platelet Count 60 thou/uL (130-400); Platelet Morphology Comment Appears Decreased
[2020-10-08] MEDS ORDERED: HYDROcodone/Acetaminophen 10/325 mg Tablet ONE (05:49)
[2020-10-08] MEDS ORDERED: Iopamidol-370 76% 500 ML 1 ML ONE (08:47)
== END 2020-10-08 05:56 | disposition home or self-care (01) ==
LOC: ERS 02:47
DX: S22.32XA Fracture of one rib, left side, initial encounter for closed fracture (principal); K80.80 Other cholelithiasis without obstruction; J90 Pleural effusion, not elsewhere classified; K70.31 Alcoholic cirrhosis of liver with ascites; Z79.899 Other long term (current) drug therapy; W19.XXXA Unspecified fall, initial encounter
CPT/HCPCS: 36415; 71046; 71260; 74177; 80053; 83690; 84484; 85025; 85610; 85730; 86850; 86900; 86901; 93005; 94760; 96374; J2270; Q9967

== ENCOUNTER 2020-10-15 13:43 | Inpatient (IN) | payer SELFPAY ==
[2020-10-15 14:11] LABS: Hemoglobin 8.9 g/dL (14.0-18.0); Mean Corpuscular HGB CONC 34.8 g/dL (32.0-36.0); Mean Corpuscular Hemoglobin 38.7 pg (27.0-31.0); Mean Platelet Volume 8.7 fL (7.4-10.4); Platelet Count 66 thou/uL (130-400); RBC Distribution Width 16.8 % (11.5-14.5); Red Blood Cell (RBC) Count 2.28 mill/uL (4.70-6.10); White Blood Cell (WBC) Count 7.5 thou/uL (4.8-10.8)
[2020-10-15 14:32] LABS: Anisocytosis SLIGHT = 6-15 cells (100X) (0-5/hpf); Band 11 % (5-11); Lymphocytes 10 % (21-51); MDiff Complete? YES; Macrocytosis SLIGHT = 6-15 cells (100X) (0-5/hpf); Monocytes 12 % (0-10); Myelocyte 2 % (0-0); Neutrophil 64 % (42-75); Platelet Morphology Comment Appears Decreased; Polychromasia SLIGHT = 2-3 cells (100X) (0-2/hpf); Reactive Lymphocytes 1 % (0-10); Spherocytes SLIGHT = 1-5 cells (100X) (None Seen)
[2020-10-15 14:39] LABS: ALT (SGPT) 66 U/L (8-55); AST (SGOT) 158 U/L (5-34); Albumin 2.1 g/dL (3.5-5.0); Alkaline Phosphatase 403 U/L (40-110); Anion Gap 11 mmol/L (10-20); BUN (Urea Nitrogen) 14 mg/dL (8.9-20.6); Bilirubin, Total 15.5 mg/dL (0.2-1.2); Calc. Creatinine Clearance 0 mL/min (70-130); Carbon Dioxide 20 mmol/L (22-29); Chloride 95 mmol/L (98-107); Globulin 4.2 g/dL (2.4-3.5); Glucose 76 mg/dL (70-105); Potassium 4.3 mmol/L (3.5-5.1); Protein, Total 6.3 g/dL (6.0-8.3); Sodium 122 mmol/L (136-145)
[2020-10-15] MEDS ORDERED: Cefepime 2 GM VIAL ONE (16:22)
[2020-10-15 16:54] LABS: INR-International Normal Ratio 2.3; PTT 44.3 sec (22.9-36.1)
[2020-10-15] MEDS ORDERED: Vancomycin 1 GM/200 ML BAG ONE (16:58)
[2020-10-15 17:21] LABS: Bacteria/HPF None Seen HPF (None Seen); Bilirubin 2+ (Negative); Blood, Urine Trace (Negative); Clarity Clear (Clear); Glucose, Urine (Dipstick) Normal (Negative); Ketone, Urine Negative (Negative); Leukocyte Negative Leu/uL (Negative); Nitrite Negative (Negative); Protein, Urine (Dipstick) Negative (Neg-Trace); RBC/HPF 0-3 HPF (0-3); Squamous Epithelial None Seen HPF (0-3); WBC/HPF 0-3 HPF (0-3)
[2020-10-15] MEDS ORDERED: Sodium Chloride 0.9% 1,000 ML IV SCH (19:15)
[2020-10-15] MEDS ORDERED: Ondansetron ODT 4 MG TAB SL PRN (19:15)
[2020-10-15] MEDS ORDERED: Ondansetron PF 4 MG/2 ML Vial IVP PRN ×2 (19:15→20:57)
[2020-10-15] MEDS ORDERED: HYDROcodone/Acetaminophen 5/325 mg Tablet PO PRN (19:47)
[2020-10-15] MEDS ORDERED: Acetaminophen 500 MG TAB PO PRN (20:57)
[2020-10-15 21:08] VITALS: BMI 34.1
[2020-10-15] MEDS: Famotidine 20 MG TAB PO SCH (22:24)
[2020-10-15] MEDS: Furosemide 20 MG/2 ML VIAL SLOW IVP SCH (22:24)
[2020-10-16] MEDS: VANCOMYCIN 1.25 GM/250 ML BAG 1.25 GM in Premix Bag 1 BAG IVPB SCH ×4 (01:01→16:30)
[2020-10-16 02:20] LABS: SARS-CoV-2 NAA Rapid Test Not Detected (NotDetected)
[2020-10-16] MEDS: Furosemide 20 MG/2 ML VIAL SLOW IVP SCH ×3 (05:32→21:49)
[2020-10-16 07:06] LABS: Mean Corpuscular HGB CONC 35.7 g/dL (32.0-36.0); Mean Corpuscular Hemoglobin 39.8 pg (27.0-31.0); Mean Platelet Volume 8.9 fL (7.4-10.4); Platelet Count 58 thou/uL (130-400); RBC Distribution Width 16.7 % (11.5-14.5); Red Blood Cell (RBC) Count 2.25 mill/uL (4.70-6.10); White Blood Cell (WBC) Count 6.7 thou/uL (4.8-10.8)
[2020-10-16 07:27] LABS: Anion Gap 11 mmol/L (10-20); BUN (Urea Nitrogen) 12 mg/dL (8.9-20.6); Calc. Creatinine Clearance 176 mL/min (70-130); Calcium 7.7 mg/dL (7.8-10.44); Carbon Dioxide 18 mmol/L (22-29); Chloride 95 mmol/L (98-107); Glucose 113 mg/dL (70-105); Potassium 4.1 mmol/L (3.5-5.1); Sodium 120 mmol/L (136-145)
[2020-10-16 07:28] LABS: ALT (SGPT) 62 U/L (8-55); AST (SGOT) 139 U/L (5-34); Albumin 1.9 g/dL (3.5-5.0); Alkaline Phosphatase 422 U/L (40-110); Bilirubin, Direct 8.2 mg/dL (0.1-0.3); Bilirubin, Total 14.5 mg/dL (0.2-1.2); Protein, Total 6.2 g/dL (6.0-8.3)
[2020-10-16 08:02] LABS: Band 6 % (5-11); Lymphocytes 22 % (21-51); MDiff Complete? YES; Metamyelocyte 1 % (0-0); Monocytes 8 % (0-10); Myelocyte 1 % (0-0); Neutrophil 62 % (42-75); Platelet Morphology Comment Appears Decreased; Polychromasia SLIGHT = 2-3 cells (100X) (0-2/hpf)
[2020-10-16] MEDS: Famotidine 20 MG TAB PO SCH ×3 (10:01→21:48)
[2020-10-16] MEDS: Spironolactone 100 MG TAB PO SCH ×2 (10:01→13:19)
[2020-10-16] MEDS ORDERED: Sodium Bicarbonate 2.5 MEQ/5 ML VIAL ONE (10:16)
[2020-10-16] MEDS ORDERED: Lidocaine 1% PF 5 ML VIAL ONE (10:16)
[2020-10-16 12:44] LABS: BF Color Yellow; Body Fluid Source Paracentesis Fluid; Clarity Hazy (Clear); RBC Count-Automated (BF) 796 /cu.mm; Tube # EDTA; WBC/Nucleated-Auto (BF) 169 uL
[2020-10-16 12:47] LABS: BF Segmented Neutrophils 5 %; Cell Count Non Hematic 75 %; Lymphocytes 20 %
[2020-10-16] MEDS: Thiamine 100 MG TAB PO SCH (13:18)
[2020-10-16] MEDS: Folic Acid 1 MG TAB PO SCH (13:18)
[2020-10-16 15:35] LABS: Vancomycin, Trough 25.3 ug/mL
[2020-10-16] MEDS: cefTRIAXone\\ROCEPHIN 2 GM in Sodium Chloride 0.9% 100 ML IVPB SCH (16:07)
[2020-10-16] MEDS: Vancomycin 1 GM in Premix Bag 1 BAG IVPB SCH (17:09)
[2020-10-16] MEDS: traMADol HCl 50 MG TAB PO PRN (19:57)
[2020-10-16] MEDS: Albumin 25% 25 GM/100 ML BOT IVPB SCH (21:48)
[2020-10-17] MEDS: Vancomycin 1 GM in Premix Bag 1 BAG IVPB SCH ×3 (01:54→18:03)
[2020-10-17] MEDS: Furosemide 20 MG/2 ML VIAL SLOW IVP SCH ×2 (05:06→13:47)
[2020-10-17 06:26] LABS: Hemoglobin 8.9 g/dL (14.0-18.0); Mean Corpuscular Hemoglobin 38.1 pg (27.0-31.0); Mean Platelet Volume 8.9 fL (7.4-10.4); Platelet Count 60 thou/uL (130-400); RBC Distribution Width 16.9 % (11.5-14.5); Red Blood Cell (RBC) Count 2.33 mill/uL (4.70-6.10); White Blood Cell (WBC) Count 5.7 thou/uL (4.8-10.8)
[2020-10-17 06:32] LABS: ALT (SGPT) 57 U/L (8-55); AST (SGOT) 128 U/L (5-34); Albumin 2.3 g/dL (3.5-5.0); Alkaline Phosphatase 337 U/L (40-110); Bilirubin, Direct 8.8 mg/dL (0.1-0.3); Bilirubin, Total 15.3 mg/dL (0.2-1.2); Protein, Total 6.3 g/dL (6.0-8.3)
[2020-10-17 06:33] LABS: Anion Gap 9 mmol/L (10-20); BUN (Urea Nitrogen) 14 mg/dL (8.9-20.6); Calc. Creatinine Clearance 154 mL/min (70-130); Calcium 8.1 mg/dL (7.8-10.44); Carbon Dioxide 22 mmol/L (22-29); Chloride 96 mmol/L (98-107); Glucose 92 mg/dL (70-105); Potassium 3.8 mmol/L (3.5-5.1); Sodium 123 mmol/L (136-145)
[2020-10-17 06:40] LABS: MDiff Complete? YES
[2020-10-17 06:41] LABS: Band 7 % (5-11); Eosinophils 1 % (0-10); Lymphocytes 9 % (21-51); Metamyelocyte 1 % (0-0); Monocytes 10 % (0-10); Myelocyte 1 % (0-0); Neutrophil 71 % (42-75); Platelet Morphology Comment Appears Decreased
[2020-10-17] MEDS: Albumin 25% 25 GM/100 ML BOT IVPB SCH ×3 (08:10→21:59)
[2020-10-17] MEDS: Famotidine 20 MG TAB PO SCH ×2 (08:11→22:01)
[2020-10-17] MEDS: Folic Acid 1 MG TAB PO SCH (08:11)
[2020-10-17] MEDS: Thiamine 100 MG TAB PO SCH (08:11)
[2020-10-17] MEDS: traMADol HCl 50 MG TAB PO PRN ×2 (08:14→20:22)
[2020-10-17] MEDS: cefTRIAXone\\ROCEPHIN 2 GM in Sodium Chloride 0.9% 100 ML IVPB SCH (15:49)
[2020-10-17 17:45] LABS: Vancomycin, Trough 23.1 ug/mL
[2020-10-17] MEDS ORDERED: VANCOMYCIN 1.25 GM/250 ML BAG 1.25 GM in Premix Bag 1 BAG IVPB SCH (20:00)
[2020-10-18 05:59] LABS: INR-International Normal Ratio 2.9; Prothrombin Time 31.1 sec (12.0-14.7)
[2020-10-18 06:11] LABS: Anion Gap 9 mmol/L (10-20); BUN (Urea Nitrogen) 15 mg/dL (8.9-20.6); Calc. Creatinine Clearance 180 mL/min (70-130); Calcium 8.1 mg/dL (7.8-10.44); Carbon Dioxide 23 mmol/L (22-29); Chloride 99 mmol/L (98-107); Glucose 110 mg/dL (70-105); Magnesium 1.8 mg/dL (1.6-2.6); Sodium 127 mmol/L (136-145)
[2020-10-18 06:27] LABS: Band 9 % (5-11); Eosinophils 4 % (0-10); Hemoglobin 7.9 g/dL (14.0-18.0); Lymphocytes 17 % (21-51); MDiff Complete? YES; Mean Corpuscular HGB CONC 35.1 g/dL (32.0-36.0); Mean Corpuscular Hemoglobin 39.8 pg (27.0-31.0); Mean Platelet Volume 8.4 fL (7.4-10.4); Monocytes 15 % (0-10); Myelocyte 1 % (0-0); Neutrophil 54 % (42-75); Platelet Count 48 thou/uL (130-400); Platelet Morphology Comment Appears Decreased; RBC Distribution Width 16.4 % (11.5-14.5); Red Blood Cell (RBC) Count 1.98 mill/uL (4.70-6.10); White Blood Cell (WBC) Count 3.8 thou/uL (4.8-10.8)
[2020-10-18] MEDS: prednisoLONE 10 MG ODT TAB PO SCH (08:02)
[2020-10-18] MEDS: Albumin 25% 25 GM/100 ML BOT IVPB SCH ×3 (08:02→20:50)
[2020-10-18] MEDS: traMADol HCl 50 MG TAB PO PRN ×2 (08:02→20:51)
[2020-10-18] MEDS: Thiamine 100 MG TAB PO SCH (08:03)
[2020-10-18] MEDS: Folic Acid 1 MG TAB PO SCH (08:03)
[2020-10-18] MEDS: Famotidine 20 MG TAB PO SCH ×2 (08:03→20:50)
[2020-10-18] MEDS: Furosemide 20 MG TAB PO SCH (08:03)
[2020-10-18] MEDS: Spironolactone 25 MG TAB PO SCH (08:03)
[2020-10-19 05:28] VITALS: TEMP 98
[2020-10-19 05:38] LABS: #Eosinphils 0.1 thou/uL (0.0-0.7); #Lymphocytes 0.8 thou/uL (1.20-3.40); #Neutrophils 6.4 thou/uL (1.40-6.50); %Basophils 0.3 % (0.0-1.0); %Eosinophils 0.9 % (0.0-10.0); %Lymphocytes 9.2 % (21.0-51.0); %Monocytes 12.3 % (0.0-10.0); %Neutrophils 77.3 % (42.0-75.0); Hemoglobin 8.5 g/dL (14.0-18.0); Mean Corpuscular HGB CONC 32.8 g/dL (32.0-36.0); Mean Corpuscular Hemoglobin 37.5 pg (27.0-31.0); Mean Platelet Volume 9.7 fL (7.4-10.4); Platelet Count 42 thou/uL (130-400); RBC Distribution Width 16.7 % (11.5-14.5); Red Blood Cell (RBC) Count 2.26 mill/uL (4.70-6.10); White Blood Cell (WBC) Count 8.3 thou/uL (4.8-10.8)
[2020-10-19 06:01] LABS: ALT (SGPT) 61 U/L (8-55); AST (SGOT) 136 U/L (5-34); Albumin 3.4 g/dL (3.5-5.0); Alkaline Phosphatase 297 U/L (40-110); Anion Gap 15 mmol/L (10-20); BUN (Urea Nitrogen) 16 mg/dL (8.9-20.6); Bilirubin, Total 18.9 mg/dL (0.2-1.2); Calc. Creatinine Clearance 222 mL/min (70-130); Calcium 8.7 mg/dL (7.8-10.44); Carbon Dioxide 19 mmol/L (22-29); Chloride 101 mmol/L (98-107); Globulin 3.8 g/dL (2.4-3.5); Glucose 118 mg/dL (70-105); Potassium 4.5 mmol/L (3.5-5.1); Protein, Total 7.2 g/dL (6.0-8.3); Sodium 130 mmol/L (136-145)
[2020-10-19 08:12] VITALS: BP 127/66
[2020-10-19] MEDS: prednisoLONE 10 MG ODT TAB PO SCH (08:47)
[2020-10-19] MEDS: Thiamine 100 MG TAB PO SCH (08:47)
[2020-10-19] MEDS: Spironolactone 25 MG TAB PO SCH (08:48)
[2020-10-19] MEDS: Furosemide 20 MG TAB PO SCH (08:48)
[2020-10-19] MEDS: Folic Acid 1 MG TAB PO SCH (08:48)
[2020-10-19] MEDS: Famotidine 20 MG TAB PO SCH (08:48)
[2020-10-19] MEDS: traMADol HCl 50 MG TAB PO PRN (08:53)
[2020-10-19] MEDS ORDERED: Mag-Al 1200 mg/1200 mg/30 ML UDCUP PO PRN (13:18)
== END 2020-10-19 15:12 | disposition home or self-care (01) | DRG 433 ==
LOC: ERS 13:43 → T4-B 17:02
PROVIDERS: ADMIT Internal Medicine; ATTEND Hospitalist
PROC: 0W9G3ZX Drainage of Peritoneal Cavity, Percutaneous Approach, Diagnostic (ICD-10-PCS; principal; 2020-10-16)
DX: K70.31 Alcoholic cirrhosis of liver with ascites (principal); Z66 Do not resuscitate; Z20.822 Contact with and (suspected) exposure to COVID-19; L03.115 Cellulitis of right lower limb; L03.116 Cellulitis of left lower limb; E87.1 Hypo-osmolality and hyponatremia; D68.4 Acquired coagulation factor deficiency; E46 Unspecified protein-calorie malnutrition; E88.09 Other disorders of plasma-protein metabolism, not elsewhere classified; F41.1 Generalized anxiety disorder; G40.909 Epilepsy, unspecified, not intractable, without status epilepticus; F10.10 Alcohol abuse, uncomplicated; R07.89 Other chest pain; R74.8 Abnormal levels of other serum enzymes; E80.6 Other disorders of bilirubin metabolism; D69.59 Other secondary thrombocytopenia; K80.80 Other cholelithiasis without obstruction; D63.8 Anemia in other chronic diseases classified elsewhere; K70.11 Alcoholic hepatitis with ascites; E87.70 Fluid overload, unspecified; Z68.32 Body mass index [BMI] 32.0-32.9, adult; Z84.1 Family history of disorders of kidney and ureter; Z88.1 Allergy status to other antibiotic agents; Z79.899 Other long term (current) drug therapy; Z82.3 Family history of stroke; Z87.891 Personal history of nicotine dependence
CPT/HCPCS: 36415; 36416; 49083; 71046; 80048; 80053; 80076; 80202; 81003; 81015; 83605; 83735; 83880; 83930; 83935; 84100; 84300; 84484; 85025; 85060; 85610; 85730; 87040; 87070; 87205; 89051; 93005; 93306; 93970; 96365; 96367; J0692; J0696; J1940; J3370; J3490; J7510; P9047; U0002; U0005

== ENCOUNTER 2020-11-16 03:12 | Inpatient (IN) | payer MEDICAID, SELFPAY ==
[2020-11-16] MEDS ORDERED: EPINEPHrine 1 MG/10 ML Abboject SYRINGE ONE (04:07)
[2020-11-16] MEDS ORDERED: Sodium Bicarb 50 MEQ/50 ML Abboject 8.4% SYRINGE ONE ×2 (04:07→04:21)
[2020-11-16] MEDS ORDERED: Calcium Chloride 1 GM/10 ML Abboject SYRINGE ONE (04:07)
[2020-11-16] MEDS ORDERED: Ketamine 50 MG/ML (10ML VIAL) ONE (04:12)
[2020-11-16 04:21] LABS: BUN (Urea Nitrogen) 75 mg/dL (8.9-20.6); Calc. Creatinine Clearance 0 mL/min (70-130); Calcium 7.9 mg/dL (7.8-10.44); Carbon Dioxide Less than 8 mmol/L (22-29); Chloride 105 mmol/L (98-107); Glucose 125 mg/dL (70-105); Potassium 6.1 mmol/L (3.5-5.1); Sodium 125 mmol/L (136-145)
[2020-11-16] MEDS ORDERED: Sodium Bicarbonate 2.5 MEQ/5 ML VIAL ONE (04:21)
[2020-11-16] MEDS ORDERED: Fentanyl CADD 100 ML IV SCH (04:30)
[2020-11-16 04:36] LABS: Actual Bicarbonate (HCO3a) 6.7 mEq/L (22-28); CO2 Tension 47.7 mmHg (35.0-45.0); Hemoglobin (Hb) 8.7 g/dL (14.0-18.0); O2 Tension (PaO2), arterial 294.6 mmHg (80.0-100.0); pH, Arterial 6.77 (7.35-7.45)
[2020-11-16 04:37] LABS: Analyzer IN Cardio ER; Carboxyhemoglobin (COHb) 0.6 gm% (0.0-3.0); Potassium - ABG Lab 5.79 mmol/L (3.70-5.30); Puncture Site Arterial Line
[2020-11-16 04:38] LABS: ALV-art Gradient 358.775 mmHg (0-20)
[2020-11-16 04:53] LABS: Hemoglobin 8.4 g/dL (14.0-18.0); Mean Corpuscular HGB CONC 32.2 g/dL (32.0-36.0); Mean Corpuscular Hemoglobin 37.9 pg (27.0-31.0); RBC Distribution Width 16.5 % (11.5-14.5); Red Blood Cell (RBC) Count 2.21 mill/uL (4.70-6.10)
[2020-11-16] MEDS ORDERED: Sodium Bicarbonate 150 MEQ in Dextrose 5% in Water 1,000 ML IV SCH ×3 (05:00→08:15)
[2020-11-16] MEDS ORDERED: Vancomycin 1 GM/200 ML BAG ONE (05:11)
[2020-11-16] MEDS ORDERED: Cefepime 2 GM VIAL ONE (05:11)
[2020-11-16] MEDS ORDERED: Pantoprazole 40 MG VIAL ONE (05:11)
[2020-11-16] MEDS ORDERED: Ondansetron PF 4 MG/2 ML Vial IVP PRN (05:16)
[2020-11-16] MEDS ORDERED: Norepinephrine 8 MG/0.9% NS 250 ML IVPB PRN (05:16)
[2020-11-16] MEDS ORDERED: Acetaminophen 500 MG TAB PO PRN (05:17)
[2020-11-16 05:18] LABS: Band 72 % (5-11); Burr Cells SLIGHT = 2-5 cells (100X) (0-1/hpf); Dohle Bodies SLIGHT; Eosinophils 1 % (0-10); Lymphocytes 10 % (21-51); MDiff Complete? YES; Macrocytosis SLIGHT = 6-15 cells (100X) (0-5/hpf); Mean Platelet Volume 10.9 fL (7.4-10.4); Metamyelocyte 7 % (0-0); Myelocyte 4 % (0-0); Neutrophil 6 % (42-75); Nucleated RBC 1 % (0); Platelet Count 31 thou/uL (130-400); Platelet Morphology Comment Appears Decreased; Reflex for Review?? YES; Toxic Granulation SLIGHT; Vacuoles SLIGHT; White Blood Cell (WBC) Count 9.8 thou/uL (4.8-10.8)
[2020-11-16] MEDS ORDERED: Calcium Chloride 13.6 MEQ in Sodium Chloride 0.9% 100 ML IVPB SCH (05:45)
[2020-11-16] MEDS ORDERED: Norepinephrine 8 MG/0.9% NS 250 ML ONE (06:19)
[2020-11-16 08:09] VITALS: BP 77/35
[2020-11-16 08:20] VITALS: BMI 30.9
[2020-11-16] MEDS ORDERED: DOPamine 400 MG/D5W 250 ML 250 ML ONE (08:25)
[2020-11-16] MEDS ORDERED: DOPamine 400 MG/D5W 250 ML 250 ML IVPB SCH (08:45)
[2020-11-16] MEDS ORDERED: Sodium Chloride 0.9% 500 ML IV SCH (08:45)
[2020-11-16 08:46] LABS: Prothrombin Time 122.4 sec (12.0-14.7)
[2020-11-16 08:50] LABS: BUN (Urea Nitrogen) 74 mg/dL (8.9-20.6); Calc. Creatinine Clearance 36 mL/min (70-130); Calcium 8.2 mg/dL (7.8-10.44); Chloride 106 mmol/L (98-107); Sodium 130 mmol/L (136-145)
[2020-11-16 08:56] LABS: Carbon Dioxide Less than 8 mmol/L (22-29); Glucose 18 mg/dL (70-105); Lactic Acid 13.2 mmol/L (0.5-2.2); Potassium 6.6 mmol/L (3.5-5.1)
[2020-11-16] MEDS ORDERED: Dextrose 50% Abboject 50 ML SYRINGE ONE (08:57)
[2020-11-16] MEDS ORDERED: Sodium Bicarb 50 MEQ/50 ML VIAL IVP SCH (09:00)
[2020-11-16] MEDS ORDERED: Phytonadione 10 MG/ML AMP PO SCH (09:15)
[2020-11-16] MEDS ORDERED: Sodium Bicarb 50 MEQ/50 ML Abboject 8.4% SYRINGE IVP SCH (09:15)
[2020-11-16] MEDS ORDERED: Dextrose 50% Abboject 50 ML SYRINGE SLOW IVP SCH (09:15)
[2020-11-16 09:22] LABS: Actual Bicarbonate (HCO3a) 7.3 mEq/L (22-28); Base Excess (BEa) -24.2 mEq/L (-2.0 to +3.0); CO2 Tension 44.4 mmHg (35.0-45.0); Calcium, Ionized (arterial) 1.11 mmol/L (1.12-1.30); Carboxyhemoglobin (COHb) 1.3 gm% (0.0-3.0); Potassium - ABG Lab 6.53 mmol/L (3.70-5.30)
[2020-11-16] MEDS: Sodium Bicarb 50 MEQ/50 ML Abboject 8.4% SYRINGE ONE (09:23)
[2020-11-16 09:30] LABS: INR-International Normal Ratio 16.9; PTT 118.8 sec (22.9-36.1)
[2020-11-16 09:40] LABS: Hemoglobin (Hb) 5.3 g/dL (14.0-18.0); Puncture Site LFA; pH, Arterial 6.83 (7.35-7.45)
[2020-11-16 11:10] VITALS: TEMP 94.3
[2020-11-16] MEDS ORDERED: Piperacillin/Tazobactam 3.375 GM in Sodium Chloride 0.9% 100 ML IVPB SCH (14:00)
[2020-11-16] MEDS ORDERED: Pantoprazole 40 MG VIAL IVP SCH (21:00)
[2020-11-17] MEDS ORDERED: CEFEPIME HCL IN DEXTROSE 5 % 1 GM in Premix Bag 1 BAG IVPB SCH (05:00)
[2020-11-17] MEDS ORDERED: Vancomycin 1 GM in Premix Bag 1 BAG IVPB SCH (06:00)
[2020-11-17] MEDS ORDERED: Albumin 25% 25 GM/100 ML BOT IVPB SCH (09:00)
== END 2020-11-16 10:29 | disposition expired | DRG 871 ==
LOC: ERS 03:12 → CCU 05:49
PROVIDERS: ADMIT Internal Medicine; ATTEND Internal Medicine
PROC: 06HY33Z Insertion of Infusion Device into Lower Vein, Percutaneous Approach (ICD-10-PCS; principal; 2020-11-16)
PROC: 0BH17EZ Insertion of Endotracheal Airway into Trachea, Via Natural or Artificial Opening (ICD-10-PCS; 2020-11-16)
PROC: 5A1935Z Respiratory Ventilation, Less than 24 Consecutive Hours (ICD-10-PCS; 2020-11-16)
PROC: 0D9670Z Drainage of Stomach with Drainage Device, Via Natural or Artificial Opening (ICD-10-PCS; 2020-11-16)
PROC: 3E033XZ Introduction of Vasopressor into Peripheral Vein, Percutaneous Approach (ICD-10-PCS; 2020-11-16)
PROC: 5A12012 Performance of Cardiac Output, Single, Manual (ICD-10-PCS; 2020-11-16)
DX: A41.9 Sepsis, unspecified organism (principal); K72.00 Acute and subacute hepatic failure without coma; R65.21 Severe sepsis with septic shock; G92 Toxic encephalopathy; K76.7 Hepatorenal syndrome; J18.9 Pneumonia, unspecified organism; J96.00 Acute respiratory failure, unspecified whether with hypoxia or hypercapnia; E87.2 Acidosis; D68.4 Acquired coagulation factor deficiency; E87.1 Hypo-osmolality and hyponatremia; E72.20 Disorder of urea cycle metabolism, unspecified; J81.1 Chronic pulmonary edema; Z66 Do not resuscitate; K70.31 Alcoholic cirrhosis of liver with ascites; F41.9 Anxiety disorder, unspecified; D69.6 Thrombocytopenia, unspecified; G40.909 Epilepsy, unspecified, not intractable, without status epilepticus; E87.5 Hyperkalemia; E16.2 Hypoglycemia, unspecified; F10.20 Alcohol dependence, uncomplicated; I46.8 Cardiac arrest due to other underlying condition; D64.9 Anemia, unspecified; Z88.1 Allergy status to other antibiotic agents; Z79.899 Other long term (current) drug therapy; Z78.1 Physical restraint status; Z82.3 Family history of stroke; Z84.1 Family history of disorders of kidney and ureter
CPT/HCPCS: 31500; 36415; 36416; 36556; 70450; 71045; 80048; 82140; 82805; 83605; 85025; 85060; 85610; 85730; 86850; 86900; 86901; 92950; 93005; 93010; 94002; 96365; 96366; 96368; 96375; 99292; C9113; J0171; J0692; J1265; J3010; J3370; J7070